=== PATIENT | male | born 1985 | race African-American/Black ===

== ENCOUNTER 2016-05-15 18:21 | Emergency (ER) | payer SELFPAY ==
[~2016-05-15] VITALS: Ht 177.8 cm; Wt 65.0 kg
[~2016-05-15 18:21] MED LIST: HYDR2TAB PO; IBUP600T26 PO
[2016-05-15 18:23] VITALS: BP 135/71; PULSE 81; RESP 17; TEMP 98.1; O2SAT 98
--- NOTE | 2016-05-15 20:49 | PD ---
HPI Chief Complaint: Skin Problem Time Seen by Provider: 20:40 Travel History International Travel<30 days: No Contact w/Intl Traveler<30days: No Traveled to known affect area: No History of Present Illness HPI 30-year-old male presents for evaluation of rash. Symptom onset 1 month ago. He has had some pruritic skin on the left side of his face as well as on the shaft of his penis for the past month. He has been scratching at it. He has not tried using any medication for symptom relief. He is sexually active, typically uses barrier contraception. Denies any contact with anyone else with a rash. Denies any new medications, creams, lotions. Denies any friction irritation. He has no other complaints. History Social History Alcohol Use: No Tobacco Use: Yes (02/12 PPD) Allergies-Medications (Allergen,Severity, Reaction): Coded Allergies: No Known Allergies (Verified , 02/03/12) Reported Meds & Prescriptions Reported Meds & Active Scripts Active Clotrimazole Topical (Clotrimazole) 1% Cream 1 Applic TOPICAL BID 21 Days Prednisone 20 Mg Tab 20 Mg PO BID 5 Days Reported Ibuprofen 600 Mg Tab 600 Mg PO DAILY Hydromorphone Hcl (Hydromorphone HCl) 8 Mg Tab 8 Mg PO TIDPRN Review of Systems Genitourinary: No: Dysuria Skin: Positive Rash, Positive Itching, Positive Dryness Physical Exam Narrative GENERAL: Well-developed well-nourished male in no acute distress SKIN: Warm and dry. Examination reveals some patchy dry excoriated skin on the face. : Examination reveals some dry excoriated skin along the shaft of the penis. No vesicular lesions, no pustular lesions, no hives, no annular lesions, no erythema or induration or fluctuant lesions, no pustular lesions. HEAD: Atraumatic. Normocephalic. EYES: Pupils equal and round. No scleral icterus. No injection or drainage. ENT: No nasal bleeding or discharge. Mucous membranes pink and moist. NECK: Trachea midline. No JVD. CARDIOVASCULAR: Regular rate and rhythm. No murmur appreciated. RESPIRATORY: No accessory muscle use. Clear to auscultation. Breath sounds equal bilaterally. Data Data Last Documented VS Vital Signs Date Time Temp Pulse Resp B/P Pulse Ox O2 Delivery O2 Flow Rate FiO2 05/15/16 18:23 98.1 81 17 135/71 98 MDM Medical Screen Exam Complete: Yes Emergency Medical Condition: No Narrative Course 30-year-old male presents with one-month duration of pruritic facial and genital skin. Examination reveals some excoriated dry skin on the face and along the shaft of the penis, may be a overlying fungal infection. This patient is safe to follow-up as an outpatient for treatment. A medical screening exam was performed: At the time of evaluation the presenting medical condition was determined not to be of an emergent nature. The patient was given the option of receiving additional care, and he accepted. Discussed with the patient the importance of not scratching at the rash. He will be discharged with clotrimazole cream and prednisone. Just prior to discharge the patient was requesting routine STD testing. He is encouraged to follow-up as an outpatient with primary care or at the health department for nonemergent STD testing. Primary Impression: Pruritic rash Additional Instructions: Medication as prescribed. Avoid scratching. Can take [id number] Benadryl for itching. Follow-up with primary care physician or the health department. Return for any emergent medical conditions. Med/Other Pt SpecificInfo: Prescription(s) given Scripts Clotrimazole Topical 1% Cream1 Applic TOPICAL BID 21 Days Prov:Pedro Gordon MD 05/15/16 Prednisone 20 Mg Tab20 Mg PO BID 5 Days Ref 0 Prov:Pedro Gordon MD 05/15/16 Disposition: 01 DISCHARGE HOME Condition: Stable [place] May 15, 2016 20:49
[2016-05-15] MEDS ORDERED: CLOT1CRE TOPICAL (21:16)
[2016-05-15] MEDS ORDERED: PRED20 PO (21:16)
== END 2016-05-15 21:24 | disposition home or self-care (01) ==
LOC: NEPK 18:21
DX: R21 Rash and other nonspecific skin eruption (principal)
CPT/HCPCS: 99282